=== PATIENT | female | born 1950 | race Caucasian/White ===

== ENCOUNTER → 2022-09-05 09:30 | Outpatient (BNVA) | payer OTHER, SELFPAY | PROVIDERS: PCP Internal Medicine; Visit Provider Psychiatry & Neurology Neurology | DX: Z13.89 Encounter for screening for other disorder (principal) ==

== ENCOUNTER 2023-09-09 09:55 | Outpatient (AMB) | payer OTHER, SELFPAY ==
--- NOTE | 2023-09-09 10:10 | MHC.OFFVIS ---
Intake Vital Signs 09/09/23 10:11 Height 5 ft 8 in Weight 146 lb 2 oz BMI 22.2 BP 188/102 H Blood Pressure Location Rt brachial Position Sitting Respiration 17 Pulse 70 Pulse Source Pulse Oximeter Pulse Oximetry (%) 98 Oxygen Delivery Method Room Air Intake Visit Reasons: 1yr follow up-CONF Intake Note: Pt presents for a one year follow up for Alzheimer's/ Dementia. Pt presents with her niece Jennie, who is also her historian today. 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 she is totally dependant on all her ADLs. SHe has sundowning. She is accompanied by her niece and her mother . ABout 7 years ago her family members noticed some short term memory issues. she frequently misplaces things. she stopped driving. she lives with her and her 89 year old mother. Her mother is active and does all the house work like cooking she has word finding difficulty , trouble remembering conversations . No h/o head injuries. 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 she used to be close to the chief doctor who and that was hard on her. AFter that she worked in school in [place] .Her sleep is good now. [facility] Medical History Alzheimer's dementia Borderline hyperlipidemia Surgical History History of cataract surgery S/P laparoscopic hysterectomy H/O colonoscopy History of tubal ligation H/O hemorrhoidectomy Family History Father Heart disease Hx of CABG Mother HTN (hypertension) Brother Primary cancer of bone marrow Social History Alcohol intake: current Patient Tobacco Use Status: Never used Tobacco Review of Systems Neuro Reports confusion Psych Reports confusion Physical Exam Vital Signs: Last Vital Signs Pulse 70 09/09/23 10:11 Resp 17 09/09/23 10:11 BP 188/102 H 09/09/23 10:11 Pulse Ox 98 09/09/23 10:11 Oxygen Delivery Method Room Air 09/09/23 10:11 BMI result Body Mass Index 22.2 Const General: cooperative, healthy appearing, comfortable and confusion Nutritional Appearance: average body habitus Orientation/consciousness: confusion HEENT Head: Yes normal to inspection Face and sinus: Yes normal facial exam Eyes Pupils: Equal, round and reactive pupils present Neck Neck: Yes normal visual inspection and Yes full ROM Neuro Other: MMSE- 09/[address] poor registration recall repetition Poor comprehension poor clock anxiety General: tone normal, moves all extremities and confusion Cranial nerves: Yes CN's II-XII intact bilaterally, Yes Equal, round and reactive pupils present, Yes Bilaterally intact EOM present, Yes Nystagmus not present, Yes Normal facial strength present, Yes Midline tongue present and Yes Symmetric palate elevation present Cognition (Neuro): abnormal cognition Gait exam (Neuro): Normal gait present Motor exam (neuro): 5/5 motor strength present throughout Coordination: [id number] test normal Assessment & Plan Assessment & Plan (1) Alzheimer's dementia: Comment: advanced Code(s): G30.9 - Alzheimer's disease, unspecified; F02.80 - Dementia in other diseases classified elsewhere, unspecified severity, without behavioral disturbance, psychotic disturbance, mood disturbance, and anxiety Plan Continue memantine XR 28 mg qd Donepezil 10mg qd The family is in touch with Senior services Her family take scare of her at home and has 24 hr supervision Counseled on assigning health care proxy , stopping driving Medications: Changed From memantine 21 mg PO BEDTIME 30 caps 6RF To memantine 28 mg PO BEDTIME 90 caps 6RF Coding Level of Care Code Est Pt Level 4 (21849) Diagnoses Alzheimer's dementia G30.9; F02.80
[2023-09-09 10:11] VITALS: BP 188/102; PULSE 70; RESP 17; O2SAT 98; BMI 22.2
== END 2023-09-09 11:16 | disposition home or self-care (01) ==
PROVIDERS: Visit Provider Psychiatry & Neurology Neurology
DX: G30.9 Alzheimer's disease, unspecified (principal); F02.80 Dementia in other diseases classified elsewhere, unspecified severity, without behavioral disturbance, psychotic disturbance, mood disturbance, and anxiety
CPT/HCPCS: 99214

== ENCOUNTER → 2023-09-09 09:55 | Outpatient (BNVA) | payer OTHER, SELFPAY | PROVIDERS: Visit Provider Psychiatry & Neurology Neurology | DX: G30.9 Alzheimer's disease, unspecified (principal); F02.80 Dementia in other diseases classified elsewhere, unspecified severity, without behavioral disturbance, psychotic disturbance, mood disturbance, and anxiety ==

== ENCOUNTER 2024-09-08 11:24 | Outpatient (AMB) | payer OTHER, SELFPAY ==
[2024-09-08 11:25] VITALS: BP 130/80; PULSE 60; O2SAT 98; BMI 21.6
--- NOTE | 2024-09-08 11:25 | MHC.OFFVIS ---
Vital Signs 09/08/24 11:25 Height 5 ft 8 in Weight 142 lb BMI 21.6 BP 130/80 Blood Pressure Location Rt brachial Position Sitting Pulse 60 Pulse Source Pulse Oximeter Pulse Oximetry (%) 98 Intake Visit Reasons: 1 year F/U-LVM Intake Note: Patient following up for alzheimer's dementia medication increase memantine Allergies No Known Allergies Allergy (Verified 09/08/24 11:28) Medication List - Last Reconciled 09/08/24 by Priya Tavera MD donepezil 10 mg PO BEDTIME donepezil 10 mg PO BEDTIME 90 days memantine 28 mg PO BEDTIME quetiapine 12.5 mg (1/2 x 25 mg) PO BEDTIME HPI Comments Details: 74y/o female comes for follow up she has progressed since her last visit. she is totally dependant on all her ADLs. SHe has sundowning, irritability. She is accompanied by her niece.she lives home with her and mother who care for her.Her mother does not want to get help, like [facility] [facility] or a long term care pharmacist care. History from initial visit-ABout 7 years ago her family members noticed some short term memory issues. she frequently misplaces things. she stopped driving. she lives with her and her 89 year old mother. Her mother is active and does all the house work like cooking she has word finding difficulty , trouble remembering conversations . No h/o head injuries. 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 she used to be close to the chief doctor who and that was hard on her. AFter that she worked in school in [place] .Her sleep is good now. [facility] Medical History Alzheimer's dementia Borderline hyperlipidemia Surgical History History of cataract surgery S/P laparoscopic hysterectomy H/O colonoscopy History of tubal ligation H/O hemorrhoidectomy Family History Father Heart disease Hx of CABG Mother HTN (hypertension) Brother Primary cancer of bone marrow Social History Alcohol intake: current Patient Tobacco Use Status: Never used Tobacco Review of Systems Neuro Reports confusion Psych Reports confusion Physical Exam Vital Signs: Last Vital Signs Pulse 60 09/08/24 11:25 BP 130/80 09/08/24 11:25 Pulse Ox 98 09/08/24 11:25 BMI result Body Mass Index 21.6 Const General: cooperative, healthy appearing, comfortable and confusion Nutritional Appearance: average body habitus Orientation/consciousness: confusion HEENT Head: Yes normal to inspection Face and sinus: Yes normal facial exam Neck Neck: Yes normal visual inspection and Yes full ROM Neuro General: tone normal, moves all extremities and confusion Cognition (Neuro): abnormal cognition Gait exam (Neuro): Normal gait present Assessment & Plan Assessment & Plan (1) Alzheimer's dementia: Comment: advanced Code(s): G30.9 - Alzheimer's disease, unspecified; F02.80 - Dementia in other diseases classified elsewhere, unspecified severity, without behavioral disturbance, psychotic disturbance, mood disturbance, and anxiety Category: Medical Plan D/C memantine XR 28 mg qd Donepezil 10mg qd The family is in touch with Senior services Her family takes care of her at home and has 24 hr supervision Counseled on assigning health care proxy and contact senior services continue services 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 Medications: Discontinued memantine Discontinued Reason: Doctor's Order 28 mg PO BEDTIME 90 caps 6RF Coding Level of Care Code Est Pt Level 4 (56819) Diagnoses Alzheimer's dementia G30.9; F02.80
--- OUTSIDE RECORDS SUMMARY | 2024-09-08 13:51 | XMS_ITS | Patient Health Record ---
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 Contraception: menopause Text messaging while driving: no Sunscreen: yes Illicit drugs: no Seatbelt: yes Problems Problem Type SNOMED Code ICD Code Onset Dates Problem Status W/U Status Risk Notes Problem Menopausal symptom (61311910) Symptomatic menopausal or female climacteric states (627.2) Active confirmed Major Plan Of Treatment Pending Test Test Name Order Date Bone Density 01/21/2017 MM Digital Mammo Screening 01/22/2016 Insurance Providers Payer Name Payer Address Payer Phone Subscriber Number Group Number Insured Name Patient Relationship to Insured Coverage Start Date Coverage End Date [facility] [address] [place] [address] [id number] CRISTY ERNST Spouse - patient is the spouse of the insured Medical (General) History Medical History History ICD Code Symptomatic menopausal or female climact cristy states 627.2 Fibrosclerosis of breast 610.3 Surgical History Surgery Date(Month/Year) BTL Colonoscopy Hemorrhoidectomy R breast FNA, benign TLH BSO (fibroids) 04/2015 Hospitalization History Reason Date(Month/Year) See Surgical Hx
== END 2024-09-08 11:48 | disposition home or self-care (01) ==
LOC: HO.HSMS 11:25
PROVIDERS: PCP Internal Medicine; Visit Provider Psychiatry & Neurology Neurology
DX: G30.9 Alzheimer's disease, unspecified (principal); F02.80 Dementia in other diseases classified elsewhere, unspecified severity, without behavioral disturbance, psychotic disturbance, mood disturbance, and anxiety
CPT/HCPCS: 99214

== ENCOUNTER → 2024-09-08 11:24 | Outpatient (BNVA) | payer OTHER, SELFPAY | PROVIDERS: PCP Internal Medicine; Visit Provider Psychiatry & Neurology Neurology ==